=== PATIENT | female | born 1965 | race Caucasian/White ===

== ENCOUNTER → 2019-03-20 10:44 | Outpatient (CLI) | payer OTHER ==
[2019-03-20 11:29] LABS: BILIRUBIN - INDIRECT 0.14 mg/dL (0.00-1.00); BILIRUBIN - TOTAL 0.18 mg/dL (0.2-1.3); PROTEIN - SERUM 7.7 g/dL (6.4-8.2)
[2019-03-20 11:30] LABS: BILIRUBIN - DIRECT 0.04 mg/dL (0.00-0.30)
== END | disposition home or self-care (01) ==
LOC: D.LAB 10:44
PROVIDERS: ATTEND Pediatrics
DX: M32.9 Systemic lupus erythematosus, unspecified (principal); R11.0 Nausea; M19.90 Unspecified osteoarthritis, unspecified site

== ENCOUNTER 2019-05-03 12:34 | Emergency (ER) | payer MEDICAID ==
[~2019-05-03] VITALS: Ht 162.6 cm; Wt 59.1 kg
[2019-05-03 12:49] VITALS: Ht 162.6 cm; Wt 59.1 kg
[2019-05-03] MEDS ORDERED: EFFEXOR XR150 MG PO (12:51)
[2019-05-03] MEDS ORDERED: BUPROPION HCL100 MG PO (12:51)
[2019-05-03] MEDS ORDERED: CELEBREX200 MG PO (12:52)
[2019-05-03] MEDS ORDERED: COZAAR50 MG PO (12:52)
[2019-05-03] MEDS ORDERED: BUTALB-APAP-CA1 EACH PO (12:53)
[2019-05-03] MEDS ORDERED: NORVASC10 MG PO (12:53)
[2019-05-03] MEDS ORDERED: CARDURA2 MG PO (12:53)
[2019-05-03] MEDS ORDERED: BAYER CHEWABLE81 MG PO (12:53)
[2019-05-03] MEDS ORDERED: NORMODYNE / TR100 MG PO (12:53)
[2019-05-03] MEDS ORDERED: KLONOPIN1 MG PO (12:54)
[2019-05-03 13:15] LABS: BASOPHILS 0.2 % (0-2); EOSINOPHILS 2.8 % (0-7); HEMOGLOBIN 12.7 g/dL (12-16); IMMATURE GRANULOCYTES 0.2 % (0-5); LYMPHOCYTES 40.8 % (15-50); MCH 28.9 pg (26.0-34.0); MCHC 32.6 g/dL (31.0-37.0); MCV 88.6 fL (80.0-100.0); MEAN PLATELET VOLUME 8.1 fL (7.4-10.4); MONOCYTES 12.6 % (2-11); NEUTROPHILS 43.4 % (40-80); PLATELET COUNT 225 10x3/uL (130-400); RDW 14.1 % (11.5-14.5); WBC 5.6 10x3/uL (4.8-10.8)
[2019-05-03 13:25] LABS: CALC OSMOLALITY 277 mosm/kg (275-300); CALCIUM 9.2 mg/dL (8.5-10.1); CARBON DIOXIDE 26.9 mmol/L (21.0-32.0); CHLORIDE - SERUM 105 mmol/L (98-107); CREATININE - SERUM 0.8 mg/dL (0.6-1.3); GLUCOSE 91 mg/dL (74-106); POTASSIUM - SERUM 3.5 mmol/L (3.5-5.1); SODIUM 140 mmol/L (136-145); UREA NITROGEN 9 mg/dL (7-18); eGFR NON AFRICAN AMERICAN 80 mL/min (90-120)
[2019-05-03 13:28] LABS: ALBUMIN 4.1 g/dL (3.4-5.0); ALKALINE PHOSPHATASE 107 U/L (46-116); ALT (SGPT) 14 U/L (10-68); BILIRUBIN - TOTAL 0.16 mg/dL (0.2-1.3); PROTEIN - SERUM 8.1 g/dL (6.4-8.2)
[2019-05-03 15:00] VITALS: BP 102/57
== END 2019-05-03 15:15 | disposition home or self-care (01) ==
LOC: D.ER 12:34
PROVIDERS: Family Medicine
DX: S06.0X9A Concussion with loss of consciousness of unspecified duration, initial encounter (principal); X58.XXXA Exposure to other specified factors, initial encounter